=== PATIENT | male | born 1965 | race Caucasian/White ===

== ENCOUNTER 2017-03-14 20:14 | Emergency (ER) | payer BC ==
[~2017-03-14] VITALS: Ht 172.7 cm; Wt 68.0 kg
[~2017-03-14 20:14] MED LIST: SULF1TAB47 PO
[2017-03-14 20:19] VITALS: BP 143/65; PULSE 68; RESP 18; TEMP 99.1; O2SAT 96
[2017-03-14] MEDS ORDERED: HYDR-3535 PO (20:19)
[2017-03-14] MEDS ORDERED: AMBI5TAB PO (20:19)
[2017-03-14] MEDS ORDERED: CYCL1TAB29 PO (20:19)
[2017-03-14] MEDS ORDERED: anxiety med PO (20:19)
[2017-03-14] MEDS ORDERED: FLUO1TAB3 PO (20:25)
[2017-03-14] MEDS ORDERED: KETOROLAC TROMETHAMINE 60 MG/2 ML (IM) VIAL IM ONE (21:00)
[2017-03-14] MEDS ORDERED: ORPHENADRINE INJ 60 MG/2 ML AMP IM ONE (21:00)
[2017-03-14] MEDS ORDERED: ROBA750T PO (21:29)
[2017-03-14] MEDS ORDERED: IBUP800T23 PO (21:30)
--- NOTE | 2017-03-14 21:30 | PD ---
HPI Chief Complaint: Back/ Neck Pain or Injury Time Seen by Provider: 20:20 Travel History International Travel<30 days: No Contact w/Intl Traveler<30days: No Traveled to known affect area: No History of Present Illness HPI Emergency department for evaluation of low back pain and muscle spasms times one day. Patient reports yesterday while at work he attempted to stand from a sitting position and felt pain within the low back. Since that time he reports increasing spasming in the low back prompting his visit today. He denies fever , chills, incontinence, saddle anesthesia, numbness/weakness/tingling in lower extremities. He reports the pain as intermittent spasming in nature, nonradiating, worse with twisting and flexion, relieved with rest. Severity 7 out of 10. PFSH Past Medical History Medical History: Denies Significant Hx Diminished Hearing: No Musculoskeletal: Yes (back) Immunizations Current: Yes Tetanus Vaccination: > 5 Years Influenza Vaccination: No Past Surgical History Tonsillectomy: Yes Other Surgery: Yes (NOSE SURGERY) Social History Alcohol Use: Yes (occ) Tobacco Use: No Substance Use: No Allergies-Medications (Allergen,Severity, Reaction): Coded Allergies: No Known Allergies (Verified , 03/14/17) Reported Meds & Prescriptions Reported Meds & Active Scripts Active Robaxin (Methocarbamol) 750 Mg Tab 750 Mg PO TID Reported Fluoxetine (Fluoxetine HCl) 20 Mg Tab 20 Mg PO DAILY Flexeril (Cyclobenzaprine HCl) 10 Mg Tab 10 Mg PO ONCE Lortab (Hydrocodone-Acetaminophen) 10-325 Mg Tab 1 Tab PO ONCE PRN Ambien (Zolpidem Tartrate) 5 Mg Tab 5 Mg PO HS PRN Review of Systems Except as stated in HPI: all other systems reviewed are Neg General / Constitutional: No: Fever Eyes: No: Visual changes HENT: No: Headaches Cardiovascular: No: Chest Pain or Discomfort Respiratory: No: Shortness of Breath Gastrointestinal: No: Abdominal Pain Genitourinary: No: Dysuria Physical Exam Narrative GENERAL: Alert, well-appearing male in no acute distress. Patient lying on stretcher he grimaces with movement. SKIN: Focused skin assessment warm/dry. HEAD: Atraumatic. Normocephalic. EYES: Pupils equal and round. No scleral icterus. No injection or drainage. ENT: No nasal bleeding or discharge. Mucous membranes pink and moist. NECK: Trachea midline. No JVD. CARDIOVASCULAR: Regular rate and rhythm. No murmur appreciated. RESPIRATORY: No accessory muscle use. Clear to auscultation. Breath sounds equal bilaterally. GASTROINTESTINAL: Abdomen soft, non-tender, nondistended. Hepatic and splenic margins not palpable. MUSCULOSKELETAL: No obvious deformities. No clubbing. No cyanosis. No edema. BACK: No CVA tenderness. No rash. No point tenderness on palpation of the spine. TTP to bilateral paraspinous musculature in the lumbar region. Negative straight leg raise. 5 out of 5 strength in lower extremities. Normal sensation. Dorsiflexion plantarflexion intact. NEUROLOGICAL: Awake and alert. No obvious cranial nerve deficits. Motor grossly within normal limits. Normal speech. PSYCHIATRIC: Appropriate mood and affect; insight and judgment normal. Data Data Last Documented VS Vital Signs Date Time Temp Pulse Resp B/P Pulse Ox O2 Delivery O2 Flow Rate FiO2 03/14/17 20:19 99.1 68 18 143/65 96 Orders Ketorolac Inj (Toradol Inj) (03/14/17 21:00) Orphenadrine Inj (Norflex Inj) (03/14/17 21:00) [facility] Medical Decision Making Medical Screen Exam Complete: Yes Emergency Medical Condition: Yes Differential Diagnosis Lumbar strain, sciatica, herniated disc Narrative Course 51-year-old male with chief complaint of low back pain and muscle spasms in one day. Patient reports pain began yesterday when he stood up from sitting position. He reports he took one Flexeril and 1 Lortab from a friend which slightly improved symptoms. He denies fever or chills, incontinence, numbness/ weakness/tingling of lower extremities. Patient has no history of IV drug abuse. Physical exam is reassuring. He is tender in the paraspinous muscle region and lumbar spine. He has no midline spine tenderness. He has a normal neurologic exam. Patient will be given a shot of Toradol and Norflex and reassess. 2100 patient reassessed he is reporting his pain is down to a 4/10. He reports symptoms improvement in his ready for discharge. He appears much more comfortable. He'll be discharged home with NSAIDs and muscle relaxers. Return precautions discussed. Patient verbalizes understanding and agrees to plan. Diagnosis Primary Impression: Lumbar strain Qualified Code: S39.012A - Strain of lumbar region, initial encounter Referrals: Primary Care Physician Additional Instructions: Take medications as prescribed. Avoid heavy lifting or strenuous activity. Return to emergency department if he developed new or worsening symptoms. Scripts Ibuprofen 800 Mg [id number] Mg PO Q8H PRN (Pain/Inflammation) #30 TAB Prov:Jaimie Walker 03/14/17 Methocarbamol (Robaxin)750 Mg [id number] Mg PO TID #12 TAB Ref 0 Prov:Jaimie Walker 03/14/17 Disposition: 01 DISCHARGE HOME Condition: Stable Jaimie Walker Mar 14, 2017 21:30
== END 2017-03-14 21:42 | disposition home or self-care (01) ==
LOC: PHEFT 20:14
DX: S39.012A Strain of muscle, fascia and tendon of lower back, initial encounter (principal); M62.830 Muscle spasm of back; X58.XXXA Exposure to other specified factors, initial encounter; Y93.89 Activity, other specified; Y92.219 Unspecified school as the place of occurrence of the external cause
CPT/HCPCS: 96372; 99284; J1885; J2360